=== PATIENT | male | born 1960 | race African-American/Black ===

== ENCOUNTER 2020-04-23 10:56 | Emergency (ER) | payer MEDICARE, MEDICAID | END 2020-04-23 11:40 | disposition home or self-care (01) | LOC: ERS 10:56 | DX: S02.5XXA Fracture of tooth (traumatic), initial encounter for closed fracture (principal); E11.9 Type 2 diabetes mellitus without complications; Z79.899 Other long term (current) drug therapy; X50.9XXA Other and unspecified overexertion or strenuous movements or postures, initial encounter | CPT/HCPCS: 99282 ==

== ENCOUNTER 2020-07-22 13:38 | Emergency (ER) | payer MEDICARE, MEDICAID ==
[2020-07-22] MEDS ORDERED: Acetaminophen 500 MG TAB ONE (13:58)
[2020-07-22] MEDS ORDERED: Iopamidol-370 76% 500 ML 1 ML ONE (14:05)
[2020-07-22 14:13] LABS: #Lymphocytes 0.8 thou/uL (1.20-3.40); #Monocytes 0.4 thou/uL (0.11-0.59); #Neutrophils 3.8 thou/uL (1.40-6.50); %Basophils 0.1 % (0.0-1.0); %Lymphocytes 15.7 % (21.0-51.0); %Monocytes 7.5 % (0.0-10.0); %Neutrophils 76.7 % (42.0-75.0); Hemoglobin 16.1 g/dL (14.0-18.0); Mean Corpuscular HGB CONC 34.2 g/dL (32.0-36.0); Mean Corpuscular Hemoglobin 32.5 pg (27.0-31.0); Mean Corpuscular Volume 95.2 fL (78.0-98.0); Mean Platelet Volume 8.4 fL (7.4-10.4); Platelet Count 146 thou/uL (130-400); RBC Distribution Width 11.3 % (11.5-14.5); Red Blood Cell (RBC) Count 4.96 mill/uL (4.70-6.10); White Blood Cell (WBC) Count 4.9 thou/uL (4.8-10.8)
--- NOTE | 2020-07-22 14:25 | RAD ---
PORTABLE CHEST 1 VIEW: Date: 07/22/2020 Time: 1411 hours HISTORY: Cough, fever. COMPARISON: 01/12/2020. FINDINGS: The heart size is normal. The aorta is tortuous. The lungs are well expanded without lobar consolidat ion, pneumothoraces, or pleural effusions. IMPRESSION: No radiographic evidence of acute cardiopulmonary process. POS: AH
[2020-07-22 16:04] LABS: Albumin 3.4 g/dL (3.4-4.8)
[2020-07-22 16:05] LABS: Chloride 104 mmol/L (98-107); Sodium 134 mmol/L (136-145)
[2020-07-22 16:07] LABS: Globulin 3.3 g/dL (2.4-3.5); Glucose 62 mg/dL (80-115); Protein, Total 6.7 g/dL (5.8-8.1)
[2020-07-22 16:08] LABS: Anion Gap 10 mmol/L (10-20); Bilirubin, Total 0.5 mg/dL (0.2-1.2); Carbon Dioxide 24 mmol/L (23-31)
[2020-07-22 16:09] LABS: Alkaline Phosphatase 50 U/L (40-110)
[2020-07-22 16:10] LABS: Calc. Creatinine Clearance 0 mL/min (70-130)
[2020-07-22 16:11] LABS: BUN (Urea Nitrogen) 11 mg/dL (8.4-25.7)
[2020-07-22 16:12] LABS: ALT (SGPT) 24 U/L (8-55); AST (SGOT) 44 U/L (5-34)
--- NOTE | 2020-07-22 16:22 | CT ---
CTA Angio Chest W WO Con History: Cough Comparison: Radiograph same day Findings: CT angiogram chest performed after the intravenous ministration of contrast. 3-D rendering provided. No proximal segmental pulmonary arterial filling defect. Scattered patchy peripheral perihilar airspa ce opacities. No pneumothorax. No significant effusion. Aortic contour is nonaneurysmal. No significant pericardial effusion. Upper abdomen is unremarkable. Impression: 1. No pulmonary embolism. 2. Mild Covid-19 pneumonia.
[2020-07-22] MEDS ORDERED: Dexamethasone 4 MG TAB ONE (16:58)
[2020-07-23 12:44] LABS: SARS-CoV-2 PCR by NAA DETECTED (NotDetected)
--- NOTE | 2020-08-09 21:52 | EKG ---
Test Reason : FEVER SOB Blood Pressure : / mmHG Vent. Rate : 109 BPM Atrial Rate : 109 BPM P-R Int : 116 ms QRS Dur : 080 ms QT Int : 324 ms P-R-T Axes : 043 -52 005 degrees QTc Int : 436 ms Sinus tachycardia Left anterior fascicular block Abnormal ECG Confirmed by JOSE ALBERTO MARTÍNEZ DO ([id number]), editorial assistant YAZMIN GUZMAN ([id number] on 08/09/2020 9:51:24 PM Referred By: Confirmed By:JOSE ALBERTO MARTÍNEZ DO
== END 2020-07-22 17:28 | disposition home or self-care (01) ==
LOC: ERS 13:38
DX: U07.1 COVID-19 (principal); J12.82 Pneumonia due to coronavirus disease 2019; Z79.899 Other long term (current) drug therapy; Z79.84 Long term (current) use of oral hypoglycemic drugs; E11.9 Type 2 diabetes mellitus without complications
CPT/HCPCS: 71045; 71275; 80053; 84484; 85025; 93005; 99284; U0003; U0005; 36415; 87635; J8540; Q9967

== ENCOUNTER 2021-07-08 12:15 | Emergency (ER) | payer MEDICARE, MEDICAID ==
[2021-07-08 13:00] LABS: #Basophils 0.2 thou/uL (0.0-0.2); #Eosinphils 0.1 thou/uL (0.0-0.7); #Lymphocytes 0.9 thou/uL (1.20-3.40); #Monocytes 0.8 thou/uL (0.11-0.59); #Neutrophils 5.5 thou/uL (1.40-6.50); %Basophils 2.1 % (0.0-1.0); %Lymphocytes 12.7 % (21.0-51.0); %Monocytes 10.2 % (0.0-10.0); %Neutrophils 73.9 % (42.0-75.0); Hemoglobin 16.3 g/dL (14.0-18.0); Mean Corpuscular HGB CONC 34.1 g/dL (32.0-36.0); Mean Corpuscular Hemoglobin 31.6 pg (27.0-31.0); Mean Corpuscular Volume 92.5 fL (78.0-98.0); Mean Platelet Volume 7.5 fL (7.4-10.4); Platelet Count 133 thou/uL (130-400); RBC Distribution Width 12.4 % (11.5-14.5); Red Blood Cell (RBC) Count 5.16 mill/uL (4.70-6.10); White Blood Cell (WBC) Count 7.4 thou/uL (4.8-10.8)
[2021-07-08 13:26] LABS: ALT (SGPT) 21 U/L (8-55); AST (SGOT) 27 U/L (5-34); Albumin 4.1 g/dL (3.4-4.8); Alkaline Phosphatase 71 U/L (40-110); Anion Gap 13 mmol/L (10-20); BUN (Urea Nitrogen) 13 mg/dL (8.4-25.7); Bilirubin, Total 0.9 mg/dL (0.2-1.2); Calc. Creatinine Clearance 0 mL/min (70-130); Calcium 9.5 mg/dL (7.8-10.44); Carbon Dioxide 25 mmol/L (23-31); Chloride 100 mmol/L (98-107); Globulin 4.1 g/dL (2.4-3.5); Glucose 178 mg/dL (80-115); Lipase 22 U/L (8-78); Potassium 3.7 mmol/L (3.5-5.1); Protein, Total 8.2 g/dL (5.8-8.1); Sodium 134 mmol/L (136-145)
[2021-07-08 16:04] LABS: Bacteria/HPF None Seen HPF (None Seen); Bilirubin Negative (Negative); Blood, Urine Negative (Negative); Clarity Clear (Clear); Glucose, Urine (Dipstick) Normal (Negative); Ketone, Urine Negative (Negative); Leukocyte Negative Leu/uL (Negative); Nitrite Negative (Negative); Protein, Urine (Dipstick) 50 mg/dL (Neg-Trace); RBC/HPF 0-3 HPF (0-3); Specific Gravity, Urine 1.016 (1.002-1.036); Squamous Epithelial 0-3 HPF (0-3); Urobilinogen Normal mg/dL (Less than 2); WBC/HPF 0-3 HPF (0-3)
[2021-07-09 16:17] LABS: SARS-CoV-2 PCR by NAA DETECTED (NotDetected)
== END 2021-07-08 16:55 | disposition home or self-care (01) ==
LOC: ERS 12:15
DX: U07.1 COVID-19 (principal); I95.1 Orthostatic hypotension; I44.4 Left anterior fascicular block; I51.7 Cardiomegaly; I10 Essential (primary) hypertension; E11.9 Type 2 diabetes mellitus without complications; Z79.84 Long term (current) use of oral hypoglycemic drugs
CPT/HCPCS: 71045; 80053; 82962; 83690; 85025; 87804 ×2; 93005; U0003; U0005; 36415; 36416; 81003; 81015

== ENCOUNTER 2021-12-14 08:13 | Emergency (ER) | payer OTHER, MEDICARE, MEDICAID ==
[2021-12-14] MEDS ORDERED: Ibuprofen 200 MG TAB ONE (09:29)
== END 2021-12-14 10:30 | disposition home or self-care (01) ==
LOC: ERS 08:13
DX: M54.50 Low back pain, unspecified (principal); E11.9 Type 2 diabetes mellitus without complications; I10 Essential (primary) hypertension; Z79.84 Long term (current) use of oral hypoglycemic drugs
CPT/HCPCS: 71045; 72131